=== PATIENT | male | born 1985 | race Caucasian/White ===

== ENCOUNTER 2020-02-15 16:11 | Emergency (ER) | payer SELFPAY ==
[2020-02-15 16:55] VITALS: BP 136/83; PULSE 83; RESP 16; TEMP 36.6; O2SAT 97; BMI 50.8
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
== END 2020-02-15 18:26 | disposition home or self-care (01) ==
PROVIDERS: Emergency Provider Emergency Medicine
DX: S00.512A Abrasion of oral cavity, initial encounter (principal); K13.79 Other lesions of oral mucosa; T14.8XXA Other injury of unspecified body region, initial encounter; X99.8XXA Assault by other sharp object, initial encounter; Y93.9 Activity, unspecified; Y92.009 Unspecified place in unspecified non-institutional (private) residence as the place of occurrence of the external cause; F17.200 Nicotine dependence, unspecified, uncomplicated; Z71.6 Tobacco abuse counseling; F12.90 Cannabis use, unspecified, uncomplicated
CPT/HCPCS: 90471; 90715; 99284

== ENCOUNTER 2021-08-19 14:20 | Emergency (ER) | payer MEDICAID, SELFPAY ==
[2021-08-19 14:32] VITALS: BP 140/86; PULSE 99; RESP 18; TEMP 37.1; O2SAT 99; BMI 24.4
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
== END 2021-08-19 16:48 | disposition home or self-care (01) ==
PROVIDERS: Emergency Provider Emergency Medicine
DX: S31.821A Laceration without foreign body of left buttock, initial encounter (principal); S50.812A Abrasion of left forearm, initial encounter; X99.1XXA Assault by knife, initial encounter; Y93.9 Activity, unspecified; Y92.9 Unspecified place or not applicable; Y99.9 Unspecified external cause status
CPT/HCPCS: 12002; 99282; 99284

== ENCOUNTER 2021-08-29 13:26 | Emergency (ER) | payer MEDICAID, SELFPAY ==
[2021-08-29 13:31] VITALS: BP 132/88; PULSE 132; RESP 18; TEMP 35.9; O2SAT 97; BMI 24.4
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
[2021-08-29] MEDS: HYDROcodone Bit/Acetam 5/325 TABLET 1 TAB PO (14:12)
== END 2021-08-29 14:17 | disposition home or self-care (01) ==
PROVIDERS: Emergency Provider Emergency Medicine
DX: Z48.02 Encounter for removal of sutures (principal)
CPT/HCPCS: 99283